=== PATIENT | female | born 1935 | race Caucasian/White ===

== ENCOUNTER 2018-07-03 11:24 | Emergency (ER) | payer MEDICARE, OTHER ==
--- NOTE | 2018-07-03 12:36 | ULT ---
FUltrasound Doppler duplex venous left lower extremity: 06/23/2018 HISTORY: Left lower extremity pain and edema. TECHNIQUE: Grayscale, color-flow, and spectral analysis, of major veins of left lower extremity. FINDINGS: There is demonstration of blood flow with normal compressibility, of the bilateral common femoral, pr ofunda femoral, greater saphenous, femoral, popliteal, and posterior tibial, veins. IMPRESSION: Negative. No deep venous thrombosis of left lower extremity.
== END 2018-07-03 13:30 | disposition home or self-care (01) ==
LOC: ERS 11:24
DX: R23.4 Changes in skin texture (principal); L01.00 Impetigo, unspecified; H62.42 Otitis externa in other diseases classified elsewhere, left ear; Z79.82 Long term (current) use of aspirin; Z79.899 Other long term (current) drug therapy

== ENCOUNTER 2018-08-04 10:32 | Inpatient (IN) | payer MEDICARE, OTHER ==
--- NOTE | 2018-08-04 11:06 | RAD ---
XR Hip Lt 2-3 View INDICATION: Fall COMPARISON: Prior radiograph dated 01/02/2000 FINDINGS: Bones: There is been interval development of a comminuted intertrochanteric hip fracture with displac ement of the lesser trochanter fracture component. The prosthetic components are unchanged in position. There is a comminuted fracture extension into the greater trochanter. Hip joint: Left hip prosthesis projects in expected position. SI joints and symphysis pubis: Radiographically normal. Intrapelvic contents: Visualized bowel gas pattern is within normal limits. Surrounding soft tissues: Radiographically normal. IMPRESSION: 1. Comminuted left hip periprosthetic intertrochanteric hip fracture
[2018-08-04] MEDS ORDERED: Fentanyl 100 MCG/2 ML VIAL ONE (11:53)
--- NOTE | 2018-08-04 12:20 | RAD ---
AP PELVIS ONE VIEW: HISTORY: Injury from fall. FINDINGS: There is a markedly displaced, comminuted intertrochanteric and subtrochanteric fracture of the left hip. Total left hip replacement. This fracture is acute appearing and new from a prior 2009 study. IMPRESSION: Markedly displaced intertrochanteric and subtrochanteric fracture, with marked displacement of the le sser trochanteric fracture fragment. The pelvis itself appears intact. POS: TPC
--- NOTE | 2018-08-04 12:26 | RAD ---
LEFT FEMUR TWO VIEWS: HISTORY: Injury from a fall. FINDINGS: Comminuted intertrochanteric and subtrochanteric fractures of the left hip with a total left hip pros thesis. The distal femur and femoral shaft is intact. Postoperative changes are noted of the sadaell dandy. IMPRESSION: Displaced, comminuted intertrochanteric and subtrochanteric fracture with marked displacement of the lesser trochanteric fragment. No dislocation of the total hip replacement. The distal femur is inta ct. POS: TPC
[2018-08-04 12:30] LABS: #Basophils 0.1 thou/uL (0.0-0.2); #Eosinphils 0.1 thou/uL (0.0-0.7); #Lymphocytes 1.2 thou/uL (1.20-3.40); #Monocytes 0.6 thou/uL (0.11-0.59); #Neutrophils 11.1 thou/uL (1.40-6.50); %Basophils 0.5 % (0.0-1.0); %Eosinophils 0.7 % (0.0-10.0); %Lymphocytes 9.3 % (21.0-51.0); %Monocytes 4.6 % (0.0-10.0); %Neutrophils 84.9 % (42.0-75.0); Hemoglobin 13.4 g/dL (12.0-16.0); Mean Corpuscular HGB CONC 32.7 g/dL (32.0-36.0); Mean Corpuscular Hemoglobin 31.3 pg (27.0-31.0); Mean Corpuscular Volume 95.9 fL (78.0-98.0); Mean Platelet Volume 9.2 fL (7.4-10.4); Platelet Count 172 thou/uL (130-400); RBC Distribution Width 13.4 % (11.5-14.5); Red Blood Cell (RBC) Count 4.28 mill/uL (4.20-5.40)
[2018-08-04 12:37] LABS: INR-International Normal Ratio 1.1; PTT 26.4 SEC (22.9-36.1); Prothrombin Time 14.2 SEC (12.0-14.7)
[2018-08-04] MEDS ORDERED: Ondansetron PF 4 MG/2 ML Vial ONE (12:37)
[2018-08-04] MEDS ORDERED: Morphine 2 MG/ML SYRINGE ONE (12:37)
--- NOTE | 2018-08-04 12:39 | RAD ---
UPRIGHT PORTABLE CHEST 1 VIEW: HISTORY: Injury from a fall, preoperative evaluation. COMPARISON: 09/07/2014. FINDINGS: Minimal stable blunting of the left costophrenic angle. Minimal cardiomegaly. No confluent pneumoni a, overt edema, or pleural effusion. Bone demineralization. IMPRESSION: Stable cardiomegaly and blunting of the left costophrenic angle. No significant acute process. Athe rosclerosis of the aorta with ectasia. POS: TPC
[2018-08-04 12:41] LABS: Bilirubin Negative (Negative); Blood, Urine Negative (Negative); Clarity CLEAR (Clear); Glucose, Urine (Dipstick) Negative (Negative); Leukocyte Negative (Negative); Nitrite Negative (Negative); Protein, Urine (Dipstick) Negative (Neg-Trace); Specific Gravity, Urine 1.009 (1.002-1.036); Urobilinogen 0.2 mg/dL (0.2-1.0); pH, Urine 7.5 (5.0-9.0)
[2018-08-04 12:48] LABS: ALT (SGPT) 15 U/L (8-55); AST (SGOT) 24 U/L (5-34); Alkaline Phosphatase 95 U/L (40-150); Anion Gap 15 mmol/L (10-20); BUN (Urea Nitrogen) 15 mg/dL (9.8-20.1); Bilirubin, Total 0.7 mg/dL (0.2-1.2); CK (CPK) 154 U/L (29-168); Calc. Creatinine Clearance 0 mL/min (70-130); Calcium 9.3 mg/dL (7.8-10.44); Carbon Dioxide 24 mmol/L (23-31); Chloride 108 mmol/L (98-107); Estimated GFR-MDRD 55; Globulin 2.8 g/dL (2.4-3.5); Glucose 114 mg/dL (83-110); Protein, Total 6.8 g/dL (6.0-8.3); Sodium 143 mmol/L (136-145)
--- NOTE | 2018-08-04 15:15 | HP ---
CONSULTATIONS: Orthopedics, Dr. Mullins. HISTORY OF PRESENT ILLNESS: The patient is an 82-year-old woman, who presented to the emergency department via ground EMS after having a ground level fall. The patient states that she slipped and fell and landed on her left buttock. She had significant pain there, but was able to get up and utilize a walker and ambulate and was going to meet the EMS crew when she states that the pain got so severe that she "blacked out." She fell down again. EMS assessed her. She had no loss of consciousness. Her EKG was sinus rhythm and her blood glucose was normal. The patient denied chest pain or shortness of breath or any syncopal symptoms. Her chief complaint is left hip pain. ALLERGIES: 1. PHENOBARBITAL. 2. SULFA. CURRENT MEDICATIONS: 1. Aspirin. 2. Propranolol. 3. Namenda. 4. Aricept. PAST MEDICAL HISTORY: 1. "Early Alzheimer's.". 2. Gastroesophageal reflux disease. PAST SURGICAL HISTORY: 1. Hysterectomy. 2. Left hip replacement. 3. Open reduction and internal fixation of left patella fracture. 4. Tonsillectomy. SOCIAL HISTORY: The patient lives independently at home with her spouse. She ambulates at times with a walker, but primarily without. She drinks socially 1-2 drinks a week. Smoked tobacco greater than 20 years ago. Denies any drug use. REVIEW OF SYSTEMS: Ten-point review of systems is negative except as otherwise stated. PHYSICAL EXAMINATION: VITAL SIGNS: Blood pressure 114/76, heart rate 66, respirations 18, oxygen saturation 98% on room air. GENERAL: The patient is resting comfortably in the ER bed. She is awake, alert, and oriented x3. Henry Coma Scale is 15. HEENT: Head is normocephalic and atraumatic. Eyes; extraocular motion intact, PERRLA bilaterally. Ears are atraumatic without discharge. Nose atraumatic without discharge. Oropharynx is clear. NECK: Nontender. Trachea is midline. There is no JVD. CHEST: Clear to auscultation with good inspiratory and expiratory effort. HEART: Regular rate and rhythm. ABDOMEN: Soft, flat, nontender with active bowel sounds. Pelvis is stable with tenderness to palpation to the left hip consistent with her fracture. EXTREMITIES: Neurovascularly intact x4. MUSCULOSKELETAL: Back by report is atraumatic and nontender. LABORATORY FINDINGS: White blood cell count 13.0, hemoglobin 13.4, hematocrit 41.0, platelets 172. Sodium 143, potassium 4.0, chloride 108, CO2 of 24, BUN 15, creatinine 0.96, glucose 114. LFTs are unremarkable. CK 154. Troponin less than 0.010. PT 14, INR 1.1, PTT 26. Urinalysis is unremarkable. RADIOGRAPHS: AP chest x-ray shows no significant acute process. Views of the left hip show a comminuted left hip periprosthetic intertrochanteric hip fracture. AP pelvis again shows the left hip fracture. Left femur once again demonstrates a displaced comminuted intertrochanteric and subtrochanteric periprosthetic proximal femur fracture. ASSESSMENT AND PLAN: 1. Status post ground level fall. 2. Left hip fracture. 3. Acute pain secondary to above. Plan will be to admit the patient to the surgical floor. She has been evaluated by Orthopedic Team in the emergency department and the plan was discussed and made that she will undergo her procedure tomorrow. The patient will be made n.p.o. after midnight. She will have pain control, pulmonary toilet, gastritis and mechanical VTE prophylaxis. The evaluation, examination, laboratory, and radiographic findings will be discussed with Dr. Sanabria after this dictation. Job ID: [id number]
[2018-08-04] MEDS ORDERED: hydrALAZINE 20 MG/ML VIAL SLOW IVP PRN (15:34)
[2018-08-04] MEDS ORDERED: Dextrose 5% in Water 1,000 ML IV PRN (15:34)
[2018-08-04] MEDS ORDERED: Morphine 4 MG/ML VIAL SLOW IVP PRN (15:34)
[2018-08-04] MEDS ORDERED: Ondansetron ODT 4 MG TAB PO PRN (15:34)
[2018-08-04] MEDS ORDERED: Dextrose 50% Abboject 50 ML SYRINGE SLOW IVP PRN (15:34)
[2018-08-04] MEDS ORDERED: Ondansetron PF 4 MG/2 ML Vial IVP PRN (15:34)
[2018-08-04 15:46] VITALS: BMI 24.5
[2018-08-04] MEDS ORDERED: Acetaminophen 1,000 MG in Premix Bag 1 BAG IVPB SCH (16:00)
[2018-08-04] MEDS: Ketorolac Tromethamine 30 MG/ML VIAL IVP SCH (17:30)
--- NOTE | 2018-08-04 20:54 | CON ---
DATE OF CONSULTATION: CONSULTING PHYSICIAN: Carlos Mullins MD REASON FOR CONSULTATION: Left hip periprosthetic fracture. BRIEF CLINICAL HISTORY: Chapis is an 82-year-old white female, who was brought to [facility] Emergency Room after a fall at home earlier today. Plain radiographs obtained in emergency room demonstrate a periprosthetic fracture of the left hip involving the greater and lesser trochanter. Surgical history is consistent for the patient having a left total hip arthroplasty by Dr. Khoa La, approximately 12 years ago. Our service was consulted by the Trauma Team, who is the admitting service for definitive management of this orthopedic problem. PAST MEDICAL HISTORY: Essentially negative. PAST SURGICAL HISTORY: She has had a left total hip arthroplasty and a left patella open reduction and internal fixation with cannulated screws and cerclage wire. MEDICATIONS: Namenda. REVIEW OF SYSTEMS: The patient denies any fever, chills, nausea, vomiting, or other constitutional symptoms. She denies any loss of consciousness, but there may be a question of dizziness, vertigo, or balance issues prior to her fall. She was able to stand and walk a little bit after her fall, but the pain was intense and she was unable to get all the way back to her room. EMS was summoned and brought the patient to the hospital. PHYSICAL EXAMINATION: EXTREMITIES: Visual inspection of the left lower extremity demonstrates her to have normal leg lengths. There might be about a 0.5 cm shortening of the left relative to the right, but there is no external rotation. She has adequate internal and external rotation. Hips not examined due to known underlying periprosthetic fracture and stability is questionable. She has dorsiflexion, inversion, and eversion of the foot. Distal pulses are bounding and 2+. No breaks in the skin and around the fracture site. IMAGING STUDIES: Two views, left femur and AP pelvis demonstrate the patient to have a what appears to be an Accolade press-fit hip stem with a Cassidy [employer]hew press-fit acetabular cup without augmenting screws. There is a displaced lesser trochanter as well as the midportion of the greater trochanter extending down the metaphyseal part of the ingrowth. I do not see any leveraging or loosening of the femoral stem, but the ingrowth portion of the hip stem itself has been compromised with fracture and is exposed. IMPRESSION: 1. Left hip periprosthetic hip fracture with questionable stability. 2. History of dementia. PLAN: 1. The risks, benefits, options, alternatives, and rationale for proceeding with left hip revision arthroplasty with a possible conversion to a long diaphyseal press-fit stem has been explained in great detail with the patient. She is ready to proceed. All questions were answered. No guarantee of outcome was stated or implied. 2. Please see orders. The patient will be admitted to Trauma Service. The patient has been posted for around 12 o'clock tomorrow. Vendors were notified. Job ID: [id number]
[2018-08-04] MEDS: Famotidine 20 MG TAB PO SCH (22:00)
[2018-08-04] MEDS: Sodium Chloride 0.9% 1,000 ML IV SCH (22:16)
[2018-08-05] MEDS: Acetaminophen 1,000 MG in Premix Bag 1 BAG IVPB SCH ×5 (00:21→23:54)
[2018-08-05] MEDS: Ketorolac Tromethamine 30 MG/ML VIAL IVP SCH ×3 (00:21→16:50)
[2018-08-05 05:45] LABS: Anion Gap 9 mmol/L (10-20); BUN (Urea Nitrogen) 14 mg/dL (9.8-20.1); Calc. Creatinine Clearance 50 mL/min (70-130); Calcium 7.8 mg/dL (7.8-10.44); Carbon Dioxide 25 mmol/L (23-31); Chloride 110 mmol/L (98-107); Estimated GFR-MDRD 63; Glucose 95 mg/dL (83-110); Potassium 4.2 mmol/L (3.5-5.1); Sodium 140 mmol/L (136-145)
[2018-08-05 06:12] LABS: #Basophils 0.1 thou/uL (0.0-0.2); #Eosinphils 0.2 thou/uL (0.0-0.7); #Lymphocytes 2.1 thou/uL (1.20-3.40); #Monocytes 0.6 thou/uL (0.11-0.59); #Neutrophils 3.6 thou/uL (1.40-6.50); %Basophils 0.8 % (0.0-1.0); %Eosinophils 3.3 % (0.0-10.0); %Lymphocytes 31.5 % (21.0-51.0); %Monocytes 9.1 % (0.0-10.0); %Neutrophils 55.3 % (42.0-75.0); Mean Corpuscular Hemoglobin 30.8 pg (27.0-31.0); Mean Corpuscular Volume 96.2 fL (78.0-98.0); Mean Platelet Volume 9.3 fL (7.4-10.4); Platelet Count 143 thou/uL (130-400); RBC Distribution Width 13.3 % (11.5-14.5); Red Blood Cell (RBC) Count 3.23 mill/uL (4.20-5.40); White Blood Cell (WBC) Count 6.6 thou/uL (4.8-10.8)
[2018-08-05] MEDS ORDERED: MEMANTINE HCL 21 MG PO SCH (09:00)
[2018-08-05] MEDS: Famotidine 20 MG TAB PO SCH (09:34)
[2018-08-05] MEDS: Sodium Chloride 0.9% 1,000 ML IV SCH ×2 (09:34→17:27)
[2018-08-05] MEDS ORDERED: Fentanyl 100 MCG/2 ML VIAL ONE ×2 (11:45→15:18)
[2018-08-05] MEDS ORDERED: Tranexamic Acid 1,000 MG/10 ML VIAL ONE ×2 (12:45→12:51)
[2018-08-05] MEDS ORDERED: Esmolol 100 MG/10 ML VIAL ONE (13:21)
[2018-08-05] MEDS ORDERED: Ondansetron PF 4 MG/2 ML Vial ONE (13:21)
[2018-08-05] MEDS ORDERED: Rocuronium Bromide 10 MG/ML (10ML VIAL) ONE (13:21)
[2018-08-05] MEDS ORDERED: Dexamethasone 20 MG/5 ML VIAL ONE (13:21)
[2018-08-05] MEDS ORDERED: Lidocaine 1% PF 5 ML VIAL ONE (13:21)
[2018-08-05] MEDS ORDERED: PROPOFOL 200 MG/20 ML VIAL ONE (13:21)
[2018-08-05] MEDS ORDERED: Calcium Chloride 1 GM/10 ML Abboject SYRINGE ONE (13:21)
[2018-08-05] MEDS ORDERED: Glycopyrrolate 0.2 MG/ML 5 ML SYRINGE ONE (13:21)
--- NOTE | 2018-08-05 14:41 | RAD ---
LEFT HIP ONE VIEW: HISTORY: Crosstable lateral view done intraoperatively. COMPARISON: 08/04/2018 FINDINGS: Total left hip revision changes are noted with an elongated intramedullary bo, extending into the mi d femoral diaphysis, stabilizing a comminuted intertrochanteric and subtrochanteric recent fracture. IMPRESSION: Left total hip revision changes. No dislocation. POS: C
[2018-08-05] MEDS ORDERED: Promethazine HCl 25 MG/ML VIAL SLOW IVP PRN (15:04)
[2018-08-05] MEDS ORDERED: Ondansetron HCl/PF 4 MG/2 ML Vial IVP PRN (15:04)
[2018-08-05] MEDS ORDERED: Promethazine HCl 25 MG/ML VIAL IM PRN (15:04)
[2018-08-05] MEDS ORDERED: HYDROmorphone 2 MG/ML VIAL SLOW IVP PRN (15:04)
--- NOTE | 2018-08-05 15:40 | PRG ---
DATE OF SERVICE: 08/05/2018 SUBJECTIVE: The patient is hospital day 2 status post ground level fall when she sustained a left hip periprosthetic fracture. The patient had no issues overnight. Her pain was controlled. She has been n.p.o. since midnight and is planned for surgery today. OBJECTIVE: VITAL SIGNS: Temperature 97.7, heart rate 67, blood pressure 142/83, respirations 18, oxygen saturation 94% on room air. GENERAL: The patient is resting comfortably in bed. She is awake, alert, and oriented x3. Halle Coma Scale is 15. HEENT: Unremarkable. LUNGS: Clear to auscultation with good inspiratory and expiratory effort. HEART: Regular rate and rhythm. ABDOMEN: Soft, flat, and nontender with hyperactive bowel sounds. EXTREMITIES: Neurovascularly intact x4. LABORATORY FINDINGS: White blood cell count 6.6, hemoglobin 10.0, hematocrit 31.1, platelets 143. Sodium 140, potassium 4.2, chloride 110, CO2 of 25, BUN 14, creatinine 0.86, glucose 95. There are no radiographs reviewed this morning. ASSESSMENT: 1. Status post ground level fall. 2. Left periprosthetic hip fracture. 3. Acute pain secondary to the above. PLAN: Plan will be to continue supportive care, pain control, pulmonary toilet, gastritis and mechanical VTE prophylaxis. Postoperatively, we will continue this, start Physical and Occupational Therapy, and discuss placement, likely rehab. The patient was evaluated this morning with Dr. Sanabria during rounds. Job ID: [id number]
[2018-08-05] MEDS ORDERED: HYDROcodone/Acetaminophen 5/325 mg Tablet PO PRN (18:00)
[2018-08-05] MEDS: HYDROcodone/Acetaminophen 5/325 mg Tablet PO PRN (18:25)
--- NOTE | 2018-08-05 21:27 | OP ---
DATE OF PROCEDURE: 08/05/2018 OPERATION PERFORMED: Revision of left total hip arthroplasty. PREOPERATIVE DIAGNOSIS: Periprosthetic fracture of left femur around a total hip arthroplasty. POSTOPERATIVE DIAGNOSIS: Periprosthetic fracture of left femur around a total hip arthroplasty. COMPLICATIONS: None. ESTIMATED BLOOD LOSS: 600 mL. PUBLIC UTILITIES SALES REPRESENTATIVE: Lasha Underwood PA-C. IMPLANTS: [employer] modular stem size 16 x 220 mm plus a standard cylindrical body. A neutral 28-mm metallic femoral head was utilized with a tripolar articulation in the acetabular cup. INDICATIONS: Ms. Cortez is an 82-year-old female who fell. She fractured the left femur around the stem of her total hip arthroplasty. This was thought to be loose and unstable. She was indicated for revision of a total hip arthroplasty to restore the ability to mobilize and provide a stable hip. DESCRIPTION OF PROCEDURE: At this point, the patient was taken to the operating room. Risks had been reviewed prior to this. She was given intravenous antibiotics. She was positioned in the right lateral decubitus position after general anesthesia was induced. At this point, we began the posterior approach to the hip. We dissected down through the subcutaneous tissues to the fascia, which was opened. We exposed the underlying short external rotators. These were subperiosteally divided from the proximal femur. We then entered the capsule of the hip. At this point, we were able to expose the underlying total hip arthroplasty. The patient had an extensively comminuted and fractured greater trochanter, lesser trochanter, and proximal femur. This extended approximately 2/3 down the stem. At this point, we used an osteotome to free the remaining aspect of the stem. We then used a backslapping device to remove the femoral stem after dislocating it. Next, we removed the previously placed acetabular liner. We then impacted our metallic liner for tripolar articulation. Next, we exposed the proximal femur. We placed a cable on the top of the proximal femur because there was a split near the top of this. This restored the alignment of the proximal femur and supported the remaining bone. We then began reaming. We reamed from a size 13 up to a size 16, this gave good chatter and fit. We accepted this. We then placed our final stem distally into the bone, this was a diaphyseal fit stem, size 16. Next, we trialed off the stem. We placed the trial body and head. Our standard lengths were appropriate on both. We had a good stable hip with full range of motion. We removed trial components. We then impacted our final body and head. Again, we reduced the hip. At this point, we placed 2 additional cables along the proximal femur. We placed one around the greater trochanter and one around the lesser trochanter. We were able to reduce these bony fragments back into their anatomic position. We tightened these appropriately and crimped the cables. At this point, we took a flat plate x-ray to confirm that we had no complication, this was the case. We then began closure. We thoroughly irrigated with copious lavage. We then closed with #2 Vicryl suture, 2-0 Vicryl suture, and emil for the skin. A sterile dressing was applied. The patient was taken to the recovery room in good condition at this point without complication. Job ID: [id number]
[2018-08-05] MEDS: CEFAZOLIN 2 GM in Premix Bag 1 BAG IVPB SCH (21:46)
[2018-08-06] MEDS: CEFAZOLIN 2 GM in Premix Bag 1 BAG IVPB SCH (05:20)
[2018-08-06] MEDS: HYDROcodone/Acetaminophen 5/325 mg Tablet PO PRN ×4 (05:36→22:49)
[2018-08-06 07:48] LABS: #Eosinphils 0.1 thou/uL (0.0-0.7); #Lymphocytes 0.9 thou/uL (1.20-3.40); #Monocytes 0.7 thou/uL (0.11-0.59); #Neutrophils 7.9 thou/uL (1.40-6.50); %Basophils 0.1 % (0.0-1.0); %Eosinophils 0.6 % (0.0-10.0); %Lymphocytes 9.2 % (21.0-51.0); %Monocytes 7.7 % (0.0-10.0); %Neutrophils 82.4 % (42.0-75.0); Hemoglobin 10.4 g/dL (12.0-16.0); Mean Corpuscular HGB CONC 32.5 g/dL (32.0-36.0); Mean Corpuscular Hemoglobin 30.9 pg (27.0-31.0); Mean Corpuscular Volume 95.2 fL (78.0-98.0); Mean Platelet Volume 9.1 fL (7.4-10.4); Platelet Count 128 thou/uL (130-400); RBC Distribution Width 12.9 % (11.5-14.5); Red Blood Cell (RBC) Count 3.35 mill/uL (4.20-5.40); White Blood Cell (WBC) Count 9.5 thou/uL (4.8-10.8)
[2018-08-06 08:04] LABS: Anion Gap 12 mmol/L (10-20); BUN (Urea Nitrogen) 11 mg/dL (9.8-20.1); Calc. Creatinine Clearance 56 mL/min (70-130); Calcium 8.3 mg/dL (7.8-10.44); Carbon Dioxide 20 mmol/L (23-31); Chloride 109 mmol/L (98-107); Estimated GFR-MDRD 73; Glucose 152 mg/dL (83-110); Magnesium 1.5 mg/dL (1.6-2.6); Potassium 4.2 mmol/L (3.5-5.1); Sodium 137 mmol/L (136-145)
[2018-08-06] MEDS ORDERED: Magnesium 2 GM/50 ML 4 GM in Premix Bag 1 BAG IVPB SCH (08:45)
[2018-08-06] MEDS: Aspirin 81 mg Enteric Coated Tablet PO SCH ×2 (09:04→20:44)
[2018-08-06] MEDS: Famotidine 20 MG TAB PO SCH (09:04)
--- NOTE | 2018-08-06 14:12 | PRG ---
DATE OF SERVICE: 08/06/2018 SUBJECTIVE: The patient was seen this morning sitting up in chair with Douglas in place. Reported pain is well controlled when she gets her medications. Reported that she was having pain at the time of our evaluation, but she had asked nursing to bring her additional pain medications. She reported sleeping well overnight. She did get up with physical therapy and was able to stand at the edge of the bed. She is tolerating a regular diet. She is on p.o. pain medications at this time. She is restarted on all of her home medications. Douglas in place with clear yellow urine in bag. She denies nausea, vomiting, or diarrhea at this time. OBJECTIVE: VITAL SIGNS: Temperature 98.1, pulse 62, respirations 14, oxygen saturation 93% on room air, and blood pressure 111/64. GENERAL: Well-appearing elderly female, sitting up in chair with no signs of acute distress. PULMONARY: Equal chest rise and fall. Clear breath sounds bilaterally. No signs of acute respiratory distress. CARDIAC: Regular rate and rhythm. No murmurs, gallops, or rubs. GI: Abdomen is soft, nontender, and nondistended. EXTREMITIES: 2+ pulses in all extremities. No significant swelling noted. Gross motor and sensation intact in all extremities. Tenderness to left anterior thigh and hip. NEUROLOGIC: GCS is 15. Pupils equal, round, and reactive to light bilaterally. LABORATORY FINDINGS: White count 9.5, hemoglobin 10.4, hematocrit 31.9, platelets 128. Sodium 137, potassium 4.2, chloride 109, carbon dioxide 20, BUN 11, creatinine 0.76, glucose 152, phosphorus 3.0, and magnesium 1.5. DIAGNOSTIC FINDINGS: There are no new diagnostic findings to report. ASSESSMENT: 1. Status post mechanical fall from standing. 2. Periprosthetic fracture of the left femur around total hip arthroplasty. 3. History of Alzheimer disease and gastroesophageal reflux disease. 4. Acute traumatic pain. PLAN: The patient will continue to work with Physical and Occupational Therapy today. Continue current pain regimen with [place]. Continue regular diet as well. She is back on all of her home medications at this time. Discontinue Douglas. Start aspirin 81 mg b.i.d. for chemo-DVT prophylaxis. The patient is pending rehab placement at this time. The patient was discussed with Dr. Sanabria today before rounds. Job ID: [id number]
[2018-08-07 06:04] LABS: Anion Gap 10 mmol/L (10-20); BUN (Urea Nitrogen) 19 mg/dL (9.8-20.1); Calc. Creatinine Clearance 53 mL/min (70-130); Calcium 8.3 mg/dL (7.8-10.44); Carbon Dioxide 26 mmol/L (23-31); Chloride 105 mmol/L (98-107); Estimated GFR-MDRD 67; Glucose 122 mg/dL (83-110); Magnesium 2.4 mg/dL (1.6-2.6); Potassium 4.3 mmol/L (3.5-5.1); Sodium 137 mmol/L (136-145)
[2018-08-07] MEDS: HYDROcodone/Acetaminophen 5/325 mg Tablet PO PRN (09:22)
[2018-08-07] MEDS: Aspirin 81 mg Enteric Coated Tablet PO SCH (09:23)
[2018-08-07] MEDS: Famotidine 20 MG TAB PO SCH (09:23)
[2018-08-07] MEDS ORDERED: traMADol HCl 50 MG TAB PO PRN (10:32)
[2018-08-07] MEDS ORDERED: Acetaminophen 500 MG TAB PO SCH (10:45)
[2018-08-07] MEDS ORDERED: Ibuprofen 600 MG TAB PO SCH (10:45)
[2018-08-07 11:32] VITALS: BP 104/60; TEMP 97.5
--- NOTE | 2018-08-08 05:05 | DIS ---
DATE OF ADMISSION: 08/04/2018 DATE OF DISCHARGE: 08/07/2018 DISCHARGE PHYSICIAN: Dr. Sanabria. CONSULTS: Orthopedic Surgery, Dr. Mullins. PROCEDURES: 1. On 08/04/2018, hip x-ray, impression; comminuted left hip periprosthetic intertrochanteric hip fracture. 2. On 08/04/2018, chest x-ray, impression; stable cardiomegaly and blunting of the left costophrenic angle. No acute process. 3. On 08/04/2018, femur x-ray, impression; displaced comminuted intertrochanteric and subtrochanteric fracture with marked displacement of the lesser trochanteric fragment. No dislocation of the total hip replacement. The distal femur is intact. 4. On 08/04/2018, pelvis x-ray, impression; markedly displaced intertrochanteric and subtrochanteric fracture. Pelvis itself appears intact. 5. On 08/05/2018, operation performed by Dr. Mullins, revision of left total hip arthroplasty. PRIMARY DIAGNOSIS: Left hip fracture, status post ground-level fall. SECONDARY DIAGNOSES: 1. Acute traumatic pain, secondary to left hip fracture. 2. Gastroesophageal reflux history. 3. History of early Alzheimer's. DISCHARGE MEDICATIONS: 1. Acetaminophen 1 g p.o. q.6 hours. 2. Aspirin 81 mg p.o. b.i.d. 3. Nexium 20 mg p.o. daily. 4. Ibuprofen 400 mg q.8 hours. 5. DuoNeb as needed. 6. Namenda XR 21 mg p.o. daily. 7. Zofran ODT 4 mg q.6 hours as needed. 8. Tramadol 50 mg p.o. q.6 hours as needed for pain. There are no discontinued medications. HISTORY OF PRESENT ILLNESS AND HOSPITAL COURSE: This is an 82-year-old woman who presented to the emergency department via EMS after a ground-level fall. The patient slipped and fell and landed on her left buttocks. The patient was able to get up and utilize a walker and ambulate. The patient reports when she was attempting to meet EMS, the pain was so severe that she "blacked out". The patient denied any chest pain or shortness of breath or any syncopal symptoms before her initial fall. The patient had no delays in her hospital stay. The patient's pain was well controlled and the patient was able to participate with physical therapy. On the day of discharge, the patient was seen and evaluated with Dr. Sanabria. The patient had no complaints nor the family. The patient's vital signs were stable on the day of discharge and exam was unremarkable including cardiopulmonary and GI exam. The patient was deemed stable for discharge to inpatient rehab for continued physical and occupational therapy. DISPOSITION: Stable. DISCHARGE INSTRUCTIONS: LOCATION: Inpatient rehab. DIET: Regular diet. ACTIVITY: Orthopedic limitations, posterior hip precautions, and partial weightbearing left lower extremity. FOLLOWUP: Follow up with Dr. Mullins as directed. Job ID: [id number] MTDD
[2018-08-09 14:07] LABS: Actual Bicarbonate (HCO3v) 21 mEq/L (22-28); Analyzer IN Cardio OR; Base Excess -4.2 mEq/L (-2.0 to +3.0); Calcium, Ionized 1.11 mmol/L (1.16-1.32); Chloride (ABG LAB) 111 mmol/L (98-106); Hemoglobin (Hb) 8.7 g/dL (11.7-16.1); Sodium 139.5 mmol/L (133-146); pH (venous) 7.35 (7.32-7.43)
[2018-08-09 14:08] LABS: Actual Bicarbonate (HCO3a) 21.2 mEq/L (22-28); Analyzer IN Cardio OR; Base Excess (BEa) -4.2 mEq/L (-2.0 to +3.0); CO2 Tension 40.2 mmHg (35.0-45.0); Carboxyhemoglobin (COHb) 0.6 gm% (0.0-3.0); Hemoglobin (Hb) 8.8 g/dL (12.0-16.0); O2 Tension (PaO2) 134.3 mmHg (> 60.0); Potassium - ABG Lab 3.91 mmol/L (3.70-5.30); pH, Arterial 7.34 (7.35-7.45)
[2018-08-09 14:30] LABS: Puncture Site ALINE
== END 2018-08-07 14:50 | DRG 467 ==
LOC: ERS 10:32 → SJJU 15:33
PROVIDERS: ADMIT Surgery; ATTEND Surgery
PROC: 0SRB0JZ Replacement of Left Hip Joint with Synthetic Substitute, Open Approach (ICD-10-PCS; principal; 2018-08-05)
PROC: 0SPB0JZ Removal of Synthetic Substitute from Left Hip Joint, Open Approach (ICD-10-PCS; 2018-08-05)
DX: S72.142A Displaced intertrochanteric fracture of left femur, initial encounter for closed fracture (principal); M97.02XA Periprosthetic fracture around internal prosthetic left hip joint, initial encounter; S72.22XA Displaced subtrochanteric fracture of left femur, initial encounter for closed fracture; W18.30XA Fall on same level, unspecified, initial encounter; K21.9 Gastro-esophageal reflux disease without esophagitis; G30.0 Alzheimer's disease with early onset; F02.80 Dementia in other diseases classified elsewhere, unspecified severity, without behavioral disturbance, psychotic disturbance, mood disturbance, and anxiety; F17.200 Nicotine dependence, unspecified, uncomplicated; Z88.2 Allergy status to sulfonamides; Z79.82 Long term (current) use of aspirin; Z88.8 Allergy status to other drugs, medicaments and biological substances; Z90.710 Acquired absence of both cervix and uterus; Z90.89 Acquired absence of other organs
CPT/HCPCS: 36415; 36430; 51702; 71045; 72170; 80048; 80053; 81003; 82550; 82805; 83605; 83735; 84100; 84484; 85025; 85610; 85730; 86850; 86900; 86901; 93005; 96374; 96375; C1776; G0390; J0131; J0690; J1100; J1885; J2001; J2270; J2405; J2704; J3010; J3475; J3490; P9016

== ENCOUNTER 2018-11-27 14:10 | Emergency (ER) | payer MEDICARE, OTHER ==
[2018-11-27 16:38] LABS: #Basophils 0.1 thou/uL (0.0-0.2); #Eosinphils 0.1 thou/uL (0.0-0.7); #Lymphocytes 1.9 thou/uL (1.20-3.40); #Monocytes 0.6 thou/uL (0.11-0.59); #Neutrophils 7.1 thou/uL (1.40-6.50); %Basophils 0.8 % (0.0-1.0); %Eosinophils 1.4 % (0.0-10.0); %Lymphocytes 19.1 % (21.0-51.0); %Monocytes 5.7 % (0.0-10.0); %Neutrophils 73.1 % (42.0-75.0); Hemoglobin 13.6 g/dL (12.0-16.0); Mean Corpuscular HGB CONC 31.9 g/dL (32.0-36.0); Mean Corpuscular Hemoglobin 29.2 pg (27.0-31.0); Mean Corpuscular Volume 91.4 fL (78.0-98.0); Mean Platelet Volume 8.8 fL (7.4-10.4); Platelet Count 252 thou/uL (130-400); RBC Distribution Width 13.9 % (11.5-14.5); Red Blood Cell (RBC) Count 4.65 mill/uL (4.20-5.40); White Blood Cell (WBC) Count 9.7 thou/uL (4.8-10.8)
[2018-11-27 17:02] LABS: ALT (SGPT) 11 U/L (8-55); AST (SGOT) 24 U/L (5-34); Albumin 4.2 g/dL (3.4-4.8); Alkaline Phosphatase 121 U/L (40-150); Anion Gap 17 mmol/L (10-20); BUN (Urea Nitrogen) 19 mg/dL (9.8-20.1); Bilirubin, Total 0.4 mg/dL (0.2-1.2); Calc. Creatinine Clearance 0 mL/min (70-130); Calcium 10.4 mg/dL (7.8-10.44); Carbon Dioxide 19 mmol/L (23-31); Chloride 106 mmol/L (98-107); Estimated GFR-MDRD 50; Globulin 3.4 g/dL (2.4-3.5); Glucose 101 mg/dL (83-110); Lipase 56 U/L (8-78); Protein, Total 7.6 g/dL (6.0-8.3); Sodium 138 mmol/L (136-145)
[2018-11-27] MEDS ORDERED: Ondansetron PF 4 MG/2 ML Vial ONE (17:35)
[2018-11-27 19:36] LABS: Bilirubin Negative (Negative); Blood, Urine Trace (Negative); Clarity Clear (Clear); Glucose, Urine (Dipstick) Normal (Negative); Leukocyte 75 Leu/uL (Negative); Nitrite Negative (Negative); Protein, Urine (Dipstick) Negative (Neg-Trace); Squamous Epithelial 0-3 HPF (0-3); Urobilinogen Normal mg/dL (Less than 2); WBC/HPF 0-3 HPF (0-3)
[2018-11-27 19:37] LABS: Bacteria/HPF 1+ HPF (None Seen)
== END 2018-11-27 20:08 | disposition home or self-care (01) ==
LOC: ERS 14:10
DX: R19.04 Left lower quadrant abdominal swelling, mass and lump (principal)
CPT/HCPCS: 36415; 80053; 81003; 81015; 83690; 85025; 96361; 96374; J2405

== ENCOUNTER 2019-06-19 15:47 | Inpatient (IN) | payer MEDICARE, OTHER ==
[~2019-06-19 15:47] MED LIST: Iopamidol 370 76% 100 ML VIAL ONE
[2019-06-19 16:49] LABS: #Lymphocytes 1.7 thou/uL (1.20-3.40); #Monocytes 0.9 thou/uL (0.11-0.59); #Neutrophils 11.3 thou/uL (1.40-6.50); %Basophils 0.3 % (0.0-1.0); %Eosinophils 0.3 % (0.0-10.0); %Lymphocytes 12.1 % (21.0-51.0); %Monocytes 6.1 % (0.0-10.0); %Neutrophils 81.2 % (42.0-75.0); Hemoglobin 14.3 g/dL (12.0-16.0); Mean Corpuscular HGB CONC 34.1 g/dL (32.0-36.0); Mean Corpuscular Hemoglobin 31.4 pg (27.0-31.0); RBC Distribution Width 13.1 % (11.5-14.5); Red Blood Cell (RBC) Count 4.55 mill/uL (4.20-5.40)
[2019-06-19 16:57] LABS: MDiff Complete? YES; Mean Platelet Volume 9.9 fL (7.4-10.4); Platelet Clumps SLIGHT; Platelet Morphology Comment PLT clumps seen-ADEQ; Polychromasia SLIGHT = 2-3 cells (100X) (0-2/hpf)
[2019-06-19 17:02] LABS: Bacteria/HPF None Seen HPF (None Seen); Bilirubin Negative (Negative); Blood, Urine Negative (Negative); Calcium Oxalate Crystals 2+ HPF (None Seen); Clarity Turbid (Clear); Glucose, Urine (Dipstick) Normal (Negative); Leukocyte 75 Leu/uL (Negative); Mucous/LPF 1+ LPF (<2+); Nitrite Negative (Negative); Protein, Urine (Dipstick) 20 mg/dL (Neg-Trace); RBC/HPF 0-3 HPF (0-3); Squamous Epithelial 0-3 HPF (0-3); Urobilinogen Normal mg/dL (Less than 2)
[2019-06-19 17:03] LABS: ALT (SGPT) 10 U/L (8-55); AST (SGOT) 18 U/L (5-34); Albumin 3.8 g/dL (3.4-4.8); Alkaline Phosphatase 104 U/L (40-110); Anion Gap 15 mmol/L (10-20); BUN (Urea Nitrogen) 19 mg/dL (9.8-20.1); Bilirubin, Total 0.9 mg/dL (0.2-1.2); Calc. Creatinine Clearance 0 mL/min (70-130); Calcium 9.4 mg/dL (7.8-10.44); Carbon Dioxide 22 mmol/L (23-31); Chloride 103 mmol/L (98-107); Estimated GFR-MDRD 60; Globulin 3.1 g/dL (2.4-3.5); Glucose 109 mg/dL (83-110); Lipase 25 U/L (8-78); Potassium 4.1 mmol/L (3.5-5.1); Protein, Total 6.9 g/dL (6.0-8.3); Sodium 136 mmol/L (136-145)
--- NOTE | 2019-06-19 19:33 | CT ---
CT Abdomen Pelvis W Con: 06/19/2019 4:09 PM CLINICAL INFORMATION: Abdominal pain COMPARISON: 06/24/2013 TECHNIQUE: Multiple contiguous axial images were obtained and a CT of the abdomen and pelvis with IV contrast. C oronal and sagittal reformats were performed. FINDINGS: Lower Chest: Moderate hiatal hernia. Abdomen: Liver: 1.9 cm hypodensity represents a cyst. Bile Ducts: Normal caliber. Gallbladder: No calcified gallstones. Normal caliber wall. Pancreas: within normal limits. Spleen: within normal limits. Adrenals: within normal limits. Kidneys: Bilateral stable hilar hypodensities represent parapelvic cysts. Pelvis: Reproductive Organs: Status post hysterectomy Ureters: within normal limits. Bladder: within normal limits. Peritoneum: No ascites or free air, no fluid collection. Bowel: Scattered diverticula are seen in the colon. There is stranding change adjacent to the left co chip but the stranding changes not exclusive to the region where the diverticula are present and is also seen surrounding the colon near the splenic flexure where less diverticula are seen. There is th ickening of the wall of the left colon. Normal appendix. Normal caliber small bowel. Mesentery and Retroperitoneum: No enlarged mesenteric or retroperitoneal lymph nodes. Vessels: Atherosclerotic calcifications. Abdominal Wall: within normal limits. Bones: Degenerative changes in the spine. The patient has a left hip prosthesis. IMPRESSION: 1. Left-sided colitis. Diverticula are seen in this region and this could represent diverticulitis. I nfectious colitis or ischemic colitis are also possibilities. 2. Hiatal hernia 3. Bilateral renal parapelvic cysts 4. Hepatic cyst
[2019-06-19] MEDS ORDERED: metroNIDAZOLE 500 MG/100 ML BAG ONE (19:55)
[2019-06-19] MEDS ORDERED: Ondansetron PF 4 MG/2 ML Vial ONE (21:05)
[2019-06-19] MEDS ORDERED: Morphine 4 MG/ML VIAL ONE (21:05)
[2019-06-19 21:28] LABS: Lactic Acid 2.8 mmol/L (0.5-2.2)
[2019-06-19] MEDS: Sodium Chloride 0.9% 1,000 ML IV SCH (22:08)
[2019-06-19] MEDS ORDERED: Acetaminophen 650 MG Suppository PR PRN (22:20)
--- NOTE | 2019-06-19 22:39 | PDOC.HHP ---
Hospitalist HPI - History of Present Illness Abdominal pain and rectal bleeding History of Present Illness: Ms. Cortez reports having loose stools with blood noted when wiping as well as diarrhea for the last couple of days. She complains of associated lower abdominal pain that seems to be worse on the left side. Denies any fevers at home. Also complains of dryness in her mouth with sensation of a coating in the roof of her mouth. Denies any mouth soreness. Has been eating/drinking but her feels she generally does not drink enough water. Today she has not had anything to eat or drink due to low appetite and feeling generally unwell. She has a history of IBS and suffers from chronic constipation/diarrhea. Her last bowel movement was yesterday and it was soft. Reports being told she had a mass in the left colon years ago but after a colonoscopy nothing else was done. Does not recall exactly how long ago this was. ED Course: In the ED she was hemodynamically normal. An EKG was done showing NSR. No ST changes or T-wave abnormalities. Mg 1.8, Lactic acid 2.8, CT AP: 1. Left-sided colitis. Diverticula are seen in this region and this could represent diverticulitis. I nfectious colitis or ischemic colitis are also possibilities. 2. Hiatal hernia 3. Bilateral renal parapelvic cysts 4. Hepatic cyst UA: Turbid, 75 leukocyte, 11-20 WBC, Hyaline cast 7-10, calcium oxalate 2+. Crystals. WCC 14, Hgb 14.3, Neutrophils 81.2. Lipase 25. Na+ 136. BUN 19, Creat 0.90, GFR 60. LFTs normal Hospitalist ROS - Review of Systems Constitutional: reports: malaise ENT: reports: other (dry mouth) Respiratory: denies: cough, dry, shortness of breath, hemoptysis, SOB with excertion, pleuritic pain, sputum, wheezing, other Cardiovascular: denies: chest pain, palpitations, orthopnea, paroxysmal noc. dyspnea, edema, light headedness, other Gastrointestinal: reports: nausea, abdominal pain, diarrhea, hematochezia Genitourinary: denies: dysuria, frequency, incontinence, hematuria, retention, other Musculoskeletal: denies: neck pain, shoulder pain, arm pain, back pain, hand pain, leg pain, foot pain, other Skin: denies: rash, lesions, mercedes, bruising, other - Medication Medications: Active Medications Generic Name Dose Route Start Last Admin Trade Name Chanel PRN Reason Stop Dose Admin Sodium Chloride 1,000 mls @ 100 mls/hr 06/19/19 21:00 06/19/19 22:08 Normal Saline 0.9% IV 1,000 mls .Q10H GEMA Administration ALLERGIES: Sulfa, phenobarbital. CURRENT: aspirin oral [place] Jun 19, 2019 16:11 DUNG Huertas, Margi TABLET : Strength - 81 mg : ORAL Patient Dose: 81 mg Oral once a day. Namenda [place] Jun 19, 2019 16:49 DUNG Huertas, Margi tablet : Strength - 5 mg : ORAL Patient Dose: unknown mg Oral once a day. Hospitalist History - Past Medical History Source: patient, family Gastrointestinal: reports: Diverticulosis, GERD, Irritable bowel disease, Other (Gastric ulcer) Psych: reports: Other (early dementia) - Past Surgical History Past Surgical History: reports: Hysterectomy, Total Hip Replacement, Tonsillectomy, Other (Left patella fracture) - Family History Family History: reports: no pertinent history - Social History Smoking Status: Never smoker Alcohol: reports: Rare Drugs: reports: none Living Situation: With Family Activity level: independent ambulation - Exam General Appearance: NAD, ill appearing General - other findings: appears flushed Eye: PERRL ENT: dry oral mucosa ENT - other findings: very slight thrush on roof of mouth Neck: supple, no lymphadenopathy Heart: RRR, no murmur, no gallops, no rubs, normal peripheral pulses Respiratory: CTAB, no wheezes, no rales, no ronchi, normal chest expansion Gastrointestinal: soft, non-distended, no guarding, tender to palpation Gastrointestinal - other findings: worse on left than right Extremities: no edema Skin: no lesions, no rashes, tenting Skin - other findings: warm to touch Neurological: cranial nerve grossly intact Musculoskeletal: normal tone, normal strength Psychiatric: A&O x 3 (appears uncomfortable) Hospitalist Results - Labs Result Diagrams: 06/19/19 19:00 06/19/19 16:25 Lab results: WBC 14.0 thou/uL (4.8-10.8) H 06/19/19 16:25 Hgb 14.0 g/dL (12.0-16.0) 06/19/19 19:00 Hct 42.9 % (36.0-47.0) 06/19/19 19:00 MCV 92.0 fL (78.0-98.0) 06/19/19 16:25 Plt Count TNP 06/19/19 16:25 Neutrophils % 81.2 % (42.0-75.0) H 06/19/19 16:25 Sodium 136 mmol/L (136-145) 06/19/19 16:25 Potassium 4.1 mmol/L (3.5-5.1) 06/19/19 16:25 Chloride 103 mmol/L (98-107) 06/19/19 16:25 Carbon Dioxide 22 mmol/L (23-31) L 06/19/19 16:25 BUN 19 mg/dL (9.8-20.1) 06/19/19 16:25 Creatinine 0.90 mg/dL (0.6-1.1) 06/19/19 16:25 Glucose 109 mg/dL (83-110) 06/19/19 16:25 Lactic Acid 2.8 mmol/L (0.5-2.2) H 06/19/19 21:09 Calcium 9.4 mg/dL (7.8-10.44) 06/19/19 16:25 Total Bilirubin 0.9 mg/dL (0.2-1.2) 06/19/19 16:25 AST 18 U/L (5-34) 06/19/19 16:25 ALT 10 U/L (8-55) 06/19/19 16:25 Alkaline Phosphatase 104 U/L (40-110) 06/19/19 16:25 Serum Total Protein 6.9 g/dL (6.0-8.3) 06/19/19 16:25 Albumin 3.8 g/dL (3.4-4.8) 06/19/19 16:25 Lipase 25 U/L (8-78) 06/19/19 16:25 Urine Ketones Negative mg/dL (Negative) 06/19/19 16:15 Urine Blood Negative (Negative) 06/19/19 16:15 Urine Nitrite Negative (Negative) 06/19/19 16:15 Ur Leukocyte Esterase 75 Zandra/uL (Negative) A 06/19/19 16:15 Urine RBC 0-3 HPF (0-3) 06/19/19 16:15 Urine WBC 11-20 HPF (0-3) A 06/19/19 16:15 Ur Squamous Epith Cells 0-3 HPF (0-3) 06/19/19 16:15 Urine Bacteria None Seen HPF (None Seen) 06/19/19 16:15 - Radiology Interpretation CT scan - abdomen Status: report reviewed by me Hospitalist H&P A/P - Problem (1) Abdominal pain Code(s): R10.9 - UNSPECIFIED ABDOMINAL PAIN Status: Acute (2) Hematochezia Code(s): K92.1 - MELENA Status: Acute (3) Infectious colitis Code(s): A09 - INFECTIOUS GASTROENTERITIS AND COLITIS, UNSPECIFIED Status: Acute (4) Diverticulosis Code(s): K57.90 - DVRTCLOS OF INTEST, PART UNSP, W/O PERF OR ABSCESS W/O BLEED Status: Chronic (5) GERD (gastroesophageal reflux disease) Code(s): K21.9 - GASTRO-ESOPHAGEAL REFLUX DISEASE WITHOUT ESOPHAGITIS Status: Chronic (6) History of IBS Code(s): Z87.19 - PERSONAL HISTORY OF OTHER DISEASES OF THE DIGESTIVE SYSTEM Status: Chronic - Plan Plan: Stool positive for occult blood. Continue IV Protonix. Continue IV antibiotics for suspected infectious colitis. Given bleeding and hx of ?colon mass with colonoscopy years ago, GI consult obtained. NPO. Nystatin for early signs of thrush. Monitor H/H. Patient receiving IVF, no output from pure wick. Suprapubic discomfort on exam, bladder scan to ensure no urine retention. Patient appears flushed and is warm to touch, will add lactic acid. Temp to be repeated. CODE STATUS FULL Surrogate decision maker: her Brandan Cortez.
[2019-06-19 23:43] VITALS: BMI 22.1
[2019-06-20] MEDS: metroNIDAZOLE 500 MG in Premix Bag 1 BAG IVPB SCH ×3 (04:43→20:22)
[2019-06-20 05:16] LABS: #Basophils 0.1 thou/uL (0.0-0.2); #Eosinphils 0.1 thou/uL (0.0-0.7); %Basophils 0.4 % (0.0-1.0); %Eosinophils 0.6 % (0.0-10.0); %Lymphocytes 15.1 % (21.0-51.0); %Monocytes 7.7 % (0.0-10.0); %Neutrophils 76.2 % (42.0-75.0); Hemoglobin 12.7 g/dL (12.0-16.0); Mean Corpuscular HGB CONC 32.5 g/dL (32.0-36.0); Mean Corpuscular Hemoglobin 30.2 pg (27.0-31.0); Mean Corpuscular Volume 92.9 fL (78.0-98.0); Mean Platelet Volume 9.2 fL (7.4-10.4); Platelet Count 176 thou/uL (130-400); RBC Distribution Width 13.2 % (11.5-14.5); White Blood Cell (WBC) Count 13.1 thou/uL (4.8-10.8)
[2019-06-20 05:39] LABS: Anion Gap 11 mmol/L (10-20); BUN (Urea Nitrogen) 13 mg/dL (9.8-20.1); Calc. Creatinine Clearance 50 mL/min (70-130); Carbon Dioxide 20 mmol/L (23-31); Chloride 110 mmol/L (98-107); Estimated GFR-MDRD 69; Glucose 103 mg/dL (83-110); Potassium 3.9 mmol/L (3.5-5.1); Sodium 137 mmol/L (136-145)
[2019-06-20] MEDS: Sodium Chloride 0.9% 1,000 ML IV SCH ×4 (07:33→20:23)
[2019-06-20 11:39] LABS: Hemoglobin 13.5 g/dL (12.0-16.0)
[2019-06-20] MEDS: Acetaminophen 325 MG TAB PO PRN ×2 (12:28→22:22)
--- NOTE | 2019-06-20 12:39 | PDOC.HOSPP ---
- Subjective Encounter Date: 06/20/19 Encounter Time: 12:38 Subjective: Ms. Cortez was seen today in follow-up of abdominal pain and colitis. She says she is feeling better. she had some abdominal pain this morning, but it is better now. She took a few sips of water without difficulty. - Objective Vital Signs & Weight: Vital Signs (12 hours) Temp Pulse Resp BP Pulse Ox 06/20/19 11:25 98.1 F 81 19 115/74 90 L 06/20/19 07:47 97.8 F 88 18 115/67 98 06/20/19 04:43 97.6 F 93 16 115/67 94 L Weight Weight 133 lb 6.075 oz I&O: 06/19/19 06/20/19 06/21/19 06:59 06:59 06:59 Intake Total 850 Output Total 900 Balance -50 Result Diagrams: 06/20/19 10:38 06/20/19 04:54 Hospitalist ROS - Medication Medications: Active Medications Generic Name Dose Route Start Last Admin Trade Name Chanel PRN Reason Stop Dose Admin Acetaminophen 650 mg 06/19/19 22:20 06/20/19 12:28 Tylenol PO 650 mg Q4H PRN Administration Headache/Fever/Mild Pain (1-3) Sodium Chloride 1,000 mls @ 100 mls/hr 06/19/19 21:00 06/20/19 09:30 Normal Saline 0.9% IV 1,000 mls .Q10H GEMA Administration Metronidazole 500 mg/ Device 100 mls @ 100 mls/hr 06/20/19 04:00 06/20/19 12: 15 IVPB 100 mls 0400,1200,2000 GEMA Administration - Exam Eye: PERRL Heart: RRR, no murmur, no gallops, no rubs, normal peripheral pulses Respiratory: CTAB, no wheezes, no rales, no ronchi, normal chest expansion, no tachypnea Gastrointestinal: soft, non-tender, non-distended, normal bowel sounds, no palpable masses, no hepatomegaly Extremities: no cyanosis, no clubbing, no edema Hosp A/P (1) Colitis presumed infectious Code(s): K52.9 - NONINFECTIVE GASTROENTERITIS AND COLITIS, UNSPECIFIED Status : Acute (2) Dementia Code(s): F03.90 - UNSPECIFIED DEMENTIA WITHOUT BEHAVIORAL DISTURBANCE Status: Acute - Plan * Acute infectious colitis- continue Levaquin and Flagyl * Will advance her diet to full liquis * Continue to monitor in the hospital * Dementia- stable
--- NOTE | 2019-06-20 19:32 | CON ---
DATE OF CONSULTATION: 06/20/2019 CHIEF COMPLAINT: Abdominal pain. HISTORY OF PRESENT ILLNESS: Ms. Cortez is an 83-year-old woman, who had onset of left lower quadrant and diffuse lower abdominal aching, abdominal pain 3 days ago. She had 3 liquidy red bloody bowel movements that came along with the onset of the abdominal pain. She has had no further bowel movements since then. The pain, however, has progressed and intensified such that she came onto the emergency room last night. She has had no nausea or vomiting. She received IV fluids and antibiotics and her pain is doing better today. She has tolerated liquids so far. She has had a history of diverticulosis in the past. Last colonoscopy documented in our system was from [address] Rojas. This showed a very tortuous colon to the sigmoid colon, but was otherwise unremarkable except for the diverticulosis. She does not believe she has had a colonoscopy since then. She did have a colonoscopy in 2002, at which time she had a polyp removed, however, this was not a precancerous type of polyp. PAST MEDICAL HISTORY: Gastroesophageal reflux, diverticulosis, and dementia. PAST SURGICAL HISTORY: Hysterectomy, hip replacement, and tonsillectomy. FAMILY HISTORY: Negative for GI malignancy. SOCIAL HISTORY: No alcohol, tobacco, or drugs. ALLERGIES: PHENOBARBITAL AND SULFA. CURRENT MEDICATIONS: Include: 1. Metronidazole. 2. Levofloxacin. HOME MEDICATIONS: She is on: 1. Namenda. 2. Protonix. 3. Ultram. 4. Ramelteon. REVIEW OF SYSTEMS: Negative x10 systems reviewed except as stated in history of present illness. PHYSICAL EXAMINATION: VITAL SIGNS: Temperature 98.1, pulse 81, and blood pressure 115/74. GENERAL: She is in no acute distress. Alert and oriented x3. EYES: No scleral icterus. OROPHARYNX: Clear without lesions. NECK: No cervical or supraclavicular lymphadenopathy. LUNGS: Clear to auscultation bilaterally. HEART: Regular rate and rhythm without murmur. ABDOMEN: Soft, nontender, and nondistended. Bowel sounds are present. EXTREMITIES: No lower extremity edema. RECTAL: Reveals brown stool in the rectal vault. LABORATORY DATA: White blood cell count 13.1, hemoglobin 13.5, and platelets 176. Creatinine 0.79, bilirubin 0.9, AST 18, ALT 10, alkaline phosphatase 104, albumin 3.8. Lipase 25. IMAGING STUDIES: CT scan of the abdomen and pelvis showed inflammatory changes in the left colon all the way up to the level near the splenic flexure and down to the sigmoid. IMPRESSION: Ischemic colitis. Onset of abdominal pain with bloody diarrhea and inflammatory changes through the left colon all the way up to the splenic flexure down through the sigmoid colon, all most consistent with ischemic colitis rather than diverticulitis or infectious colitis. She has had no stool output for the last 3 days. She has brown stool in the rectal vault, which is formed. Still this could be diverticulitis or infectious colitis, but less likely. Management will be largely the same. RECOMMENDATIONS: 1. IV fluids. 2. 7-day course of ciprofloxacin twice daily and metronidazole 3 times daily. 3. Advance her diet as she tolerates. She can likely discharge home tomorrow if she continues to do well. 4. Follow up with Dr. Rojas in 6 weeks. Depending on her clinical course, consideration for outpatient followup, colonoscopy can be given. However, she did have a very tortuous colon on her previous exam reported by Dr. Rojas and the risks versus benefits of the procedure will have to be weighed. We will continue to follow here in the hospital. Job ID: [id number]
[2019-06-21] MEDS ORDERED: RAMELTEON 8 MG PO PRN (00:58)
[2019-06-21] MEDS ORDERED: Melatonin 3 MG TAB PO SCH (01:15)
[2019-06-21] MEDS: metroNIDAZOLE 500 MG in Premix Bag 1 BAG IVPB SCH ×2 (04:27→13:37)
[2019-06-21 05:37] LABS: #Eosinphils 0.3 thou/uL (0.0-0.7); #Lymphocytes 1.7 thou/uL (1.20-3.40); #Monocytes 0.8 thou/uL (0.11-0.59); #Neutrophils 9.5 thou/uL (1.40-6.50); %Basophils 0.4 % (0.0-1.0); %Eosinophils 2.2 % (0.0-10.0); %Monocytes 6.5 % (0.0-10.0); %Neutrophils 76.9 % (42.0-75.0); Hemoglobin 11.3 g/dL (12.0-16.0); Mean Corpuscular HGB CONC 32.4 g/dL (32.0-36.0); Mean Corpuscular Hemoglobin 30.2 pg (27.0-31.0); Mean Corpuscular Volume 93.1 fL (78.0-98.0); Mean Platelet Volume 9.9 fL (7.4-10.4); Platelet Count 154 thou/uL (130-400); RBC Distribution Width 13.1 % (11.5-14.5); Red Blood Cell (RBC) Count 3.74 mill/uL (4.20-5.40); White Blood Cell (WBC) Count 12.4 thou/uL (4.8-10.8)
[2019-06-21 07:26] VITALS: TEMP 97.6
[2019-06-21] MEDS: Sodium Chloride 0.9% 1,000 ML IV SCH ×2 (09:35→13:16)
--- NOTE | 2019-06-21 11:43 | PRG ---
DATE OF SERVICE: 06/21/2019 SUBJECTIVE: Ms. Cortez has no abdominal pain and no further diarrhea. OBJECTIVE: VITAL SIGNS: Temperature 97.6, pulse 86, blood pressure 117/72. GENERAL: She is in no acute distress. Alert and oriented x3. LUNGS: Clear to auscultation bilaterally. HEART: Regular rate and rhythm without murmur. ABDOMEN: Soft, nontender, and nondistended. Bowel sounds are present. EXTREMITIES: No lower extremity edema. LABORATORY DATA: White blood cell count 12.4, hemoglobin 11.3, platelets 154. Creatinine 0.79. IMPRESSION: Ischemic colitis, clinically improved with IV fluids. RECOMMENDATIONS: 1. Complete a 7-day course of ciprofloxacin and metronidazole. 2. Advance diet as she tolerates. 3. Anticipate discharge home today. 4. She can follow up with Dr. Rojas she is in 6 weeks. She did have some report of blood in the stool, which again I think was along with ischemic colitis. She had her last colonoscopy by Dr. Rojas in 2006. Severe diverticulosis was noted at that time. Job ID: [id number]
--- NOTE | 2019-06-21 15:09 | PDOC.HOSPP ---
- Subjective Encounter Date: 06/21/19 Encounter Time: 15:08 Subjective: Ms. Cortez was seen today in follow-up of colitis. She says she is feeling much better. She is asking to go home. She denies any abdominal pain. - Objective Vital Signs & Weight: Vital Signs (12 hours) Temp Pulse Resp BP Pulse Ox 06/21/19 09:00 96 06/21/19 07:24 97.6 F 86 18 117/72 96 Weight Admit Weight 133 lb 6.075 oz Weight 133 lb 6.075 oz I&O: 06/20/19 06/21/19 06/22/19 06:59 06:59 06:59 Intake Total 850 2310 Output Total 900 2750 Balance -50 -440 Result Diagrams: 06/21/19 04:54 06/20/19 04:54 Hospitalist ROS - Medication Medications: Active Medications Generic Name Dose Route Start Last Admin Trade Name Freq PRN Reason Stop Dose Admin Acetaminophen 650 mg 06/19/19 22:20 06/20/19 22:22 Tylenol PO 650 mg Q4H PRN Administration Headache/Fever/Mild Pain (1-3) Sodium Chloride 1,000 mls @ 100 mls/hr 06/19/19 21:00 06/21/19 13:16 Normal Saline 0.9% IV Not Given .Q10H GEMA Levofloxacin 750 mg/ Device 150 mls @ 100 mls/hr 06/20/19 21:00 06/20/19 20: 23 IVPB 150 mls Q24HR GEMA Administration Metronidazole 500 mg/ Device 100 mls @ 100 mls/hr 06/20/19 04:00 06/21/19 13: 37 IVPB 100 mls 0400,1200,2000 GEMA Administration - Exam Eye: PERRL Heart: RRR, no murmur, no gallops, no rubs, normal peripheral pulses Respiratory: CTAB, no wheezes, no rales, no ronchi, normal chest expansion Gastrointestinal: soft, non-tender, non-distended, normal bowel sounds Hosp A/P (1) Colitis presumed infectious Code(s): K52.9 - NONINFECTIVE GASTROENTERITIS AND COLITIS, UNSPECIFIED Status : Acute (2) Dementia Code(s): F03.90 - UNSPECIFIED DEMENTIA WITHOUT BEHAVIORAL DISTURBANCE Status: Acute - Plan * Acute infectious colitis- GI recommendations noted * Stable for discharge home
--- NOTE | 2019-06-21 16:33 | DIS ---
DATE OF ADMISSION: 06/19/2019 DATE OF DISCHARGE: 06/21/2019 DISCHARGE DISPOSITION: Home. DISCHARGE DIAGNOSES: 1. Colitis, presumed infectious. 2. Dementia. DISCHARGE MEDICATIONS: Include; 1. Cipro 500 mg one p.o. twice a day for 7 days as well as Flagyl 500 mg p.o. 3 times a day. 2. Tramadol 50 mg q.4 as needed. 3. Ramelteon 8 mg at bedtime p.r.n. 4. Protonix 40 mg daily. 5. Namenda XR 21 mg daily. IMAGING DONE DURING HOSPITAL STAY: The patient had a CT scan of the abdomen and pelvis, which was significant for evidence of left-sided colitis. There were some diverticula seen in the region and these findings are concerning for infectious colitis and/or ischemic colitis. The patient had bilateral renal parapelvic cyst. CODE STATUS: Full code. ALLERGIES: PHENOBARBITAL AND SULFA. HOSPITAL COURSE: Ms. Cortez is a pleasant 83-year-old female, who was admitted to the emergency room after having complaints of abdominal pain. She was also having some loose stools and diarrhea as well. She was evaluated in the ER. CT scan of the abdomen was done. There was findings consistent with colitis. The patient had a sample of the stool that is taken and this was negative for C difficile or E coli toxigenic strains. She was placed on Levaquin and Flagyl and improved over the course of the next couple of days. She was seen by surgery consultant, who recommended continuing with the present management. At the time of discharge, she was tolerating a solid diet. She said the abdominal pain had completely resolved. Her vital signs were stable with no fever and as such, she was able to be discharged home and to have close outpatient followup. Job ID: [id number]
[2019-06-21 17:14] VITALS: BP 135/79
--- NOTE | 2019-06-25 04:35 | PQF ---
[employer] TIMOTHY Orozco BRAEDEN TRIPP MD [id number] [id number] CLINICAL DOCUMENTATION CLARIFICATION FORM: POST DISCHARGE Addendum to original discharge summary date: ____ Late entry note date: __ DATE: 06/25/19 ATTN: Braeden Gibbons Please exercise your independent, professional judgment in responding to the clarification form. Clinical indicators are provided on the bottom of this form for your review Can you please further clarify specify the etiology of Abdominal pain? Abdominal pain due to: Please check appropriate box(s): [ ] Ischemic Colitis [ X ] Infectious Colitis [ ] Other diagnosis [ ] Unable to determine In addition, please specify: Present on Admission (POA): [ X ] Yes [ ] No [ ] Unable to determine For continuity of documentation, please document condition throughout progress notes and discharge summary. Thank You. CLINICAL INDICATORS - SIGNS / SYMPTOMS / LABS H and P pg.1-- Abdominal pain and rectal bleeding H and P pg.1- Left sided colitis H and P pg.1- Infectious colitis or ischemic colitis are also possibilities Consult Dr. Matthew 06/19 pg.2- Most consistent with ischemic colitis rather than diverticulosis or infectious colitis DS pg.1- Colitis,presumed infectious RISK FACTORS Hx of IBS- H and P pg.5- GERD- H ad P pg.5 Diverticulosis- H and P pg.5 TREATMENT: IV Protonix- MAR IV Antibiotics for suspected infectious colitis- H and P pg.[address] Matthew 06/19 IV Fluids- MAR Abdomen/Pelvis CT 06/18 (This form is maintained as a part of the permanent medical record) 2014 [employer]. All Rights Reserved [email or web address] [email or web address]
== END 2019-06-21 16:59 | disposition home or self-care (01) | DRG 392 ==
LOC: ERS 15:47 → T4-B 19:51
PROVIDERS: ADMIT Internal Medicine; ATTEND Internal Medicine
DX: A09 Infectious gastroenteritis and colitis, unspecified (principal); K55.9 Vascular disorder of intestine, unspecified; K92.1 Melena; Z96.642 Presence of left artificial hip joint; K58.2 Mixed irritable bowel syndrome; K44.9 Diaphragmatic hernia without obstruction or gangrene; N28.1 Cyst of kidney, acquired; K76.89 Other specified diseases of liver; K21.9 Gastro-esophageal reflux disease without esophagitis; F03.90 Unspecified dementia, unspecified severity, without behavioral disturbance, psychotic disturbance, mood disturbance, and anxiety; K57.30 Diverticulosis of large intestine without perforation or abscess without bleeding; K25.9 Gastric ulcer, unspecified as acute or chronic, without hemorrhage or perforation; Z90.710 Acquired absence of both cervix and uterus; Z88.2 Allergy status to sulfonamides; Z88.8 Allergy status to other drugs, medicaments and biological substances; Z79.82 Long term (current) use of aspirin; Z79.899 Other long term (current) drug therapy
CPT/HCPCS: 36415; 51701; 74177; 80048; 80053; 81003; 81015; 82274; 83605; 83630; 83690; 83735; 85025; 86850; 86900; 86901; 87045; 87046; 87086; 87427; 87449; 96365; 96375; A4353; J1956; J2270; J2405; Q9967

== ENCOUNTER 2020-06-07 11:44 | Inpatient (IN) | payer MEDICARE ==
[2020-06-07 12:33] LABS: #Basophils 0.1 thou/uL (0.0-0.2); #Eosinphils 0.2 thou/uL (0.0-0.7); #Lymphocytes 1.7 thou/uL (1.20-3.40); #Monocytes 0.6 thou/uL (0.11-0.59); #Neutrophils 5.1 thou/uL (1.40-6.50); %Basophils 0.7 % (0.0-1.0); %Eosinophils 2.5 % (0.0-10.0); %Lymphocytes 21.8 % (21.0-51.0); %Monocytes 8.1 % (0.0-10.0); Hemoglobin 12.8 g/dL (12.0-16.0); Mean Corpuscular HGB CONC 32.4 g/dL (32.0-36.0); Mean Corpuscular Hemoglobin 30.3 pg (27.0-31.0); Mean Corpuscular Volume 93.6 fL (78.0-98.0); Mean Platelet Volume 9.4 fL (7.4-10.4); Platelet Count 134 thou/uL (130-400); Red Blood Cell (RBC) Count 4.22 mill/uL (4.20-5.40); White Blood Cell (WBC) Count 7.7 thou/uL (4.8-10.8)
[2020-06-07 12:37] LABS: INR-International Normal Ratio 1.1; PTT 26.1 sec (22.9-36.1); Prothrombin Time 14.5 sec (12.0-14.7)
[2020-06-07 12:56] LABS: ALT (SGPT) 11 U/L (8-55); AST (SGOT) 16 U/L (5-34); Albumin 3.6 g/dL (3.4-4.8); Alkaline Phosphatase 107 U/L (40-110); Anion Gap 12 mmol/L (10-20); BUN (Urea Nitrogen) 20 mg/dL (9.8-20.1); Bilirubin, Total 0.7 mg/dL (0.2-1.2); Calc. Creatinine Clearance 0 mL/min (70-130); Calcium 8.6 mg/dL (7.8-10.44); Carbon Dioxide 22 mmol/L (23-31); Chloride 111 mmol/L (98-107); Globulin 3.3 g/dL (2.4-3.5); Glucose 92 mg/dL (83-110); Potassium 3.9 mmol/L (3.5-5.1); Protein, Total 6.9 g/dL (5.8-8.1); Sodium 141 mmol/L (136-145)
[2020-06-07] MEDS ORDERED: Morphine 4 MG/ML VIAL ONE ×2 (14:05→16:50)
[2020-06-07 18:05] VITALS: BMI 23.0
[2020-06-07] MEDS ORDERED: Acetaminophen 325 MG TAB PO PRN (18:15)
[2020-06-07] MEDS ORDERED: Ondansetron ODT 4 MG TAB SL PRN (18:15)
[2020-06-07] MEDS ORDERED: Ondansetron PF 4 MG/2 ML Vial IVP PRN (18:15)
[2020-06-08] MEDS ORDERED: oxyCODONE 5 MG TAB PO SCH (03:30)
[2020-06-08] MEDS ORDERED: Acetaminophen 325 MG TAB PO PRN (07:37)
[2020-06-08] MEDS ORDERED: Zolpidem Tartrate 5 MG TAB PO PRN (07:37)
[2020-06-08] MEDS ORDERED: Loperamide HCl 2 MG CAP PO PRN (07:37)
[2020-06-08] MEDS ORDERED: Senokot S 8.6-50 MG TAB PO PRN (07:37)
[2020-06-08] MEDS ORDERED: Calcium Carbonate 500 MG ChewTAB PO PRN (07:37)
[2020-06-08] MEDS ORDERED: Ondansetron PF 4 MG/2 ML Vial IVP PRN (07:37)
[2020-06-08] MEDS ORDERED: Guaifenesin DM 100-10/5 ML UDCUP PO PRN (07:37)
[2020-06-08] MEDS ORDERED: Bisacodyl 5 MG TAB PO PRN (07:37)
[2020-06-08] MEDS ORDERED: Bisacodyl 10 MG SUPP PR PRN (07:37)
[2020-06-08] MEDS ORDERED: Ondansetron ODT 4 MG TAB PO PRN (07:37)
[2020-06-08] MEDS: Multivit, Therapeutic 1 TAB PO SCH (08:20)
[2020-06-08] MEDS: Famotidine 20 MG TAB PO SCH ×2 (08:20→21:21)
[2020-06-08] MEDS: HYDROcodone/Acetaminophen 5/325 mg Tablet PO PRN (21:20)
[2020-06-08] MEDS: Aspirin 81 mg Enteric Coated Tablet PO SCH (21:21)
[2020-06-09] MEDS: Multivit, Therapeutic 1 TAB PO SCH (08:36)
[2020-06-09] MEDS: Famotidine 20 MG TAB PO SCH ×2 (08:36→20:56)
[2020-06-09] MEDS: HYDROcodone/Acetaminophen 5/325 mg Tablet PO PRN ×2 (08:37→21:01)
[2020-06-09] MEDS ORDERED: oxyCODONE 5 MG TAB PO SCH (10:30)
[2020-06-09] MEDS: Polyethylene Glycol 3350 17 GM Packet PO SCH (20:56)
[2020-06-09] MEDS: Aspirin 81 mg Enteric Coated Tablet PO SCH (20:56)
[2020-06-09] MEDS: Senokot S 8.6-50 MG TAB PO SCH (20:56)
[2020-06-10] MEDS: Famotidine 20 MG TAB PO SCH ×2 (09:14→20:16)
[2020-06-10] MEDS: Multivit, Therapeutic 1 TAB PO SCH (09:14)
[2020-06-10] MEDS: HYDROcodone/Acetaminophen 5/325 mg Tablet PO PRN (09:14)
[2020-06-10] MEDS: Senokot S 8.6-50 MG TAB PO SCH ×2 (09:14→20:16)
[2020-06-10] MEDS: Aspirin 81 mg Enteric Coated Tablet PO SCH (20:16)
[2020-06-10] MEDS: Polyethylene Glycol 3350 17 GM Packet PO SCH (20:16)
[2020-06-11] MEDS: Multivit, Therapeutic 1 TAB PO SCH (09:42)
[2020-06-11] MEDS: Famotidine 20 MG TAB PO SCH ×2 (09:42→19:49)
[2020-06-11] MEDS: Senokot S 8.6-50 MG TAB PO SCH ×2 (09:42→19:49)
[2020-06-11] MEDS: Aspirin 81 mg Enteric Coated Tablet PO SCH (19:49)
[2020-06-11] MEDS: Polyethylene Glycol 3350 17 GM Packet PO SCH (19:50)
[2020-06-12] MEDS: Senokot S 8.6-50 MG TAB PO SCH (09:27)
[2020-06-12] MEDS: Famotidine 20 MG TAB PO SCH (09:27)
[2020-06-12] MEDS: Multivit, Therapeutic 1 TAB PO SCH (09:27)
[2020-06-12 11:48] VITALS: BP 115/76; TEMP 98.1
== END 2020-06-12 14:54 | DRG 556 ==
LOC: ERS 11:44 → SURG B 16:08 → OBSVTOIN 06-09 07:44
PROVIDERS: ADMIT Internal Medicine; ATTEND Internal Medicine
DX: M79.18 Myalgia, other site (principal); K57.90 Diverticulosis of intestine, part unspecified, without perforation or abscess without bleeding; K21.9 Gastro-esophageal reflux disease without esophagitis; G30.9 Alzheimer's disease, unspecified; F02.80 Dementia in other diseases classified elsewhere, unspecified severity, without behavioral disturbance, psychotic disturbance, mood disturbance, and anxiety; Z96.642 Presence of left artificial hip joint; K59.00 Constipation, unspecified; Z87.11 Personal history of peptic ulcer disease; Z90.710 Acquired absence of both cervix and uterus; Z79.899 Other long term (current) drug therapy; Z88.2 Allergy status to sulfonamides; Z88.8 Allergy status to other drugs, medicaments and biological substances
CPT/HCPCS: 36415; 70450; 72125; 72170; 72192; 80053; 85025; 85610; 85730; 93005; 93010; 96374; 96376; G0378; J2270

== ENCOUNTER 2022-09-08 09:46 | Observation (INO) | payer MEDICARE, OTHER ==
[2022-09-08 10:08] LABS: #Basophils 0.1 thou/uL (0.0-0.2); #Eosinphils 0.2 thou/uL (0.0-0.7); #Monocytes 0.5 thou/uL (0.11-0.59); #Neutrophils 5.4 thou/uL (1.40-6.50); %Basophils 1.4 % (0.0-1.0); %Eosinophils 2.5 % (0.0-10.0); %Lymphocytes 22.3 % (21.0-51.0); %Monocytes 5.8 % (0.0-10.0); %Neutrophils 67.6 % (42.0-75.0); Hemoglobin 12.9 g/dL (12.0-16.0); Mean Corpuscular HGB CONC 30.9 g/dL (32.0-36.0); Mean Platelet Volume 11.2 fL (7.4-10.4); Platelet Count 161 10x3/uL (130-400); RBC Distribution Width 14.9 % (11.5-14.5); White Blood Cell (WBC) Count 7.9 10x3/uL (4.8-10.8)
[2022-09-08 10:33] LABS: ALT (SGPT) 10 U/L (8-55); AST (SGOT) 16 U/L (5-34); Albumin 4.1 g/dL (3.4-4.8); Alkaline Phosphatase 97 U/L (40-110); Anion Gap 13 mmol/L (10-20); BUN (Urea Nitrogen) 26 mg/dL (9.8-20.1); Bilirubin, Total 0.6 mg/dL (0.2-1.2); Calc. Creatinine Clearance 0 mL/min (70-130); Calcium 9.6 mg/dL (7.8-10.44); Carbon Dioxide 27 mmol/L (23-31); Chloride 107 mmol/L (98-107); Estimated GFR 41; Globulin 3.4 g/dL (2.4-3.5); Glucose 129 mg/dL (83-110); Potassium 3.9 mmol/L (3.5-5.1); Protein, Total 7.5 g/dL (5.8-8.1); Sodium 143 mmol/L (136-145)
[2022-09-08 12:35] LABS: Bacteria/HPF None Seen HPF (None Seen); Bilirubin Negative (Negative); Blood, Urine Negative (Negative); CAUTI Indications for Culture Dysuria,urgency,freq; Clarity Clear (Clear); Glucose, Urine (Dipstick) Normal (Negative); Ketone, Urine Negative (Negative); Leukocyte Negative Leu/uL (Negative); Nitrite Negative (Negative); Protein, Urine (Dipstick) Negative (Neg-Trace); RBC/HPF 0-3 HPF (0-3); Specific Gravity, Urine 1.013 (1.002-1.036); Squamous Epithelial None Seen HPF (0-3); Urobilinogen Normal mg/dL (Less than 2); WBC/HPF 0-3 HPF (0-3); pH, Urine 5.5 (5.0-9.0)
[2022-09-08 12:37] LABS: Urine Culture Reflex No No
[2022-09-08 13:10] LABS: CK (CPK) 29 U/L (29-168); Lipase 40 U/L (8-78); Magnesium 2.3 mg/dL (1.6-2.6)
[2022-09-08 13:23] LABS: CKMB 0.8 ng/mL (0-6.6)
[2022-09-08] MEDS ORDERED: Guaifenesin DM 100-10/5 ML UDCUP PO PRN (14:34)
[2022-09-08] MEDS ORDERED: Senokot S 8.6-50 MG TAB PO PRN (14:34)
[2022-09-08] MEDS ORDERED: Ondansetron PF 4 MG/2 ML Vial IVP PRN (14:34)
[2022-09-08] MEDS ORDERED: Acetaminophen 325 MG TAB PO PRN (14:34)
[2022-09-08 15:14] LABS: INR-International Normal Ratio 1.1; PTT 29.2 sec (22.9-36.1); Prothrombin Time 15.1 sec (12.0-14.7)
[2022-09-08 15:32] LABS: Troponin I Less than 0.010 ng/mL (< 0.028)
[2022-09-08 18:08] LABS: Troponin I Less than 0.010 ng/mL (< 0.028)
[2022-09-08 19:20] VITALS: BMI 25.2
[2022-09-08] MEDS ORDERED: Aspirin 81 mg Enteric Coated Tablet PO SCH (21:00)
[2022-09-09 05:57] LABS: #Basophils 0.1 thou/uL (0.0-0.2); #Eosinphils 0.4 thou/uL (0.0-0.7); #Monocytes 0.5 thou/uL (0.11-0.59); %Basophils 1.5 % (0.0-1.0); %Eosinophils 6.8 % (0.0-10.0); %Lymphocytes 34.2 % (21.0-51.0); %Monocytes 8.1 % (0.0-10.0); %Neutrophils 49.2 % (42.0-75.0); Hemoglobin 11.9 g/dL (12.0-16.0); Mean Corpuscular HGB CONC 31.8 g/dL (32.0-36.0); Mean Corpuscular Hemoglobin 30.4 pg (27.0-31.0); Mean Corpuscular Volume 95.7 fl (78.0-98.0); Mean Platelet Volume 11.3 fL (7.4-10.4); Platelet Count 151 10x3/uL (130-400); RBC Distribution Width 14.6 % (11.5-14.5); Red Blood Cell (RBC) Count 3.91 mill/uL (4.20-5.40)
[2022-09-09 06:22] LABS: Anion Gap 13 mmol/L (10-20); BUN (Urea Nitrogen) 22 mg/dL (9.8-20.1); Calc. Creatinine Clearance 41 mL/min (70-130); Carbon Dioxide 25 mmol/L (23-31); Chloride 107 mmol/L (98-107); Estimated GFR 54; Glucose 93 mg/dL (83-110); Potassium 3.9 mmol/L (3.5-5.1); Sodium 141 mmol/L (136-145)
[2022-09-09] MEDS ORDERED: Lidocaine 1% (PF) 30 ML VIAL ONE (06:22)
[2022-09-09] MEDS ORDERED: Iopamidol 370 76% 100 ML VIAL ONE (08:54)
[2022-09-09] MEDS ORDERED: Polyethylene Glycol 3350 17 GM Packet PO SCH (09:00)
[2022-09-09] MEDS ORDERED: Multivit, Therapeutic 1 TAB PO SCH (09:00)
[2022-09-09 12:27] VITALS: BP 143/86; TEMP 97.2
== END 2022-09-09 13:00 | disposition home or self-care (01) ==
LOC: ERS 09:46 → ERHOLD 14:33 → 2SW 19:02
PROVIDERS: ADMIT Internal Medicine; ATTEND Internal Medicine
DX: I82.402 Acute embolism and thrombosis of unspecified deep veins of left lower extremity (principal); N18.30 Chronic kidney disease, stage 3 unspecified; F03.90 Unspecified dementia, unspecified severity, without behavioral disturbance, psychotic disturbance, mood disturbance, and anxiety; R77.8 Other specified abnormalities of plasma proteins; K21.9 Gastro-esophageal reflux disease without esophagitis; Z88.2 Allergy status to sulfonamides; Z88.8 Allergy status to other drugs, medicaments and biological substances; Z79.82 Long term (current) use of aspirin; Z79.899 Other long term (current) drug therapy; Z90.710 Acquired absence of both cervix and uterus; Z96.642 Presence of left artificial hip joint; Z90.89 Acquired absence of other organs
CPT/HCPCS: 37191; 71045; 80048; 80053; 81001; 82550; 82553; 83690; 83735; 83880; 84146; 84484 ×2; 85025 ×2; 85610; 85730; 87086; 93005; 93971; 96372; 97116; 99285; C1769; C1880; C1894; 36415; G0378; J1650; J2001; Q9967

== ENCOUNTER 2023-03-12 14:26 | Outpatient (CLI) | payer MEDICARE, OTHER | END 2023-03-12 14:27 | disposition home or self-care (01) | LOC: ULT 14:26 | PROVIDERS: ATTEND Urology | DX: R33.9 Retention of urine, unspecified (principal); N13.30 Unspecified hydronephrosis | CPT/HCPCS: 76770 ==

== ENCOUNTER 2023-04-06 10:01 | Emergency (ER) | payer MEDICARE, OTHER ==
[2023-04-06 10:36] LABS: #Basophils 0.1 thou/uL (0.0-0.2); #Eosinphils 0.2 thou/uL (0.0-0.7); #Monocytes 0.4 thou/uL (0.11-0.59); #Neutrophils 4.9 thou/uL (1.40-6.50); %Basophils 1.5 % (0.0-1.0); %Eosinophils 2.2 % (0.0-10.0); %Lymphocytes 19.1 % (21.0-51.0); %Monocytes 5.3 % (0.0-10.0); %Neutrophils 71.8 % (42.0-75.0); Hemoglobin 13.4 g/dL (12.0-16.0); Mean Corpuscular HGB CONC 31.9 g/dL (32.0-36.0); Mean Corpuscular Hemoglobin 29.9 pg (27.0-31.0); Mean Corpuscular Volume 93.8 fl (78.0-98.0); Mean Platelet Volume 12.1 fL (7.4-10.4); RBC Distribution Width 15.2 % (11.5-14.5); Red Blood Cell (RBC) Count 4.48 mill/uL (4.20-5.40); White Blood Cell (WBC) Count 6.8 10x3/uL (4.8-10.8)
[2023-04-06 10:44] LABS: Platelet Count 65 10x3/uL (130-400)
[2023-04-06 10:58] LABS: ALT (SGPT) 14 U/L (8-55); AST (SGOT) 27 U/L (5-34); Albumin 3.9 g/dL (3.4-4.8); Alkaline Phosphatase 94 U/L (40-110); Anion Gap 17 mmol/L (10-20); BUN (Urea Nitrogen) 24 mg/dL (9.8-20.1); Bilirubin, Total 0.7 mg/dL (0.2-1.2); Calc. Creatinine Clearance 0 mL/min (70-130); Calcium 8.9 mg/dL (7.8-10.44); Carbon Dioxide 21 mmol/L (23-31); Chloride 107 mmol/L (98-107); Estimated GFR 31; Globulin 3.4 g/dL (2.4-3.5); Glucose 115 mg/dL (83-110); Potassium 3.9 mmol/L (3.5-5.1); Protein, Total 7.3 g/dL (5.8-8.1); Sodium 141 mmol/L (136-145)
[2023-04-06] MEDS ORDERED: Boostrix 0.5 ML (Tdap) VIAL (>/=7 yrs of age) ONE (11:36)
== END 2023-04-06 11:47 | disposition home or self-care (01) ==
LOC: ERS 10:01
DX: S00.83XA Contusion of other part of head, initial encounter (principal); Z23 Encounter for immunization; W01.0XXA Fall on same level from slipping, tripping and stumbling without subsequent striking against object, initial encounter
CPT/HCPCS: 70450; 70486; 71045; 72125; 72170; 80053; 85025; 90471; 90715; 93005; 94760